=== PATIENT | male | born 1955 | race Caucasian/White ===

== ENCOUNTER → 2017-02-01 | Outpatient (CLI) | payer BC ==
--- NOTE | 2017-02-02 18:19 | VAS ---
Indication: Claudication . Exam: Arterial Doppler and segmental pressures of both lower extremities with ABIs obtained of both lower extremities . Findings: The ABIs along the right lower thigh was 1.0 and the calf is 1.0. The right dorsalis pedis LILIYA is 1. 0 and the posterior tibial LILIYA is 1.1. The left lower extremity LILIYA is 1.0 along the lower thigh and 1.0 in the calf . There is a 1.0 LILIYA i n the left dorsalis pedis and 1.1 LILIYA in the posterior tibial on the left. No occlusion is seen. Impression: No significant atherosclerotic narrowing detected in the lower extremity vasculature. Reported By:
== END ==
LOC: RAD 14:42
PROVIDERS: ATTEND Nurse Practitioner Family
DX: I25.10 Atherosclerotic heart disease of native coronary artery without angina pectoris (principal); I73.89 Other specified peripheral vascular diseases; Z95.1 Presence of aortocoronary bypass graft
CPT/HCPCS: 93922

== ENCOUNTER → 2018-03-08 | Outpatient (CLI) | payer BC ==
--- NOTE | 2018-03-08 11:54 | RAD ---
Examination: Left foot, three views History: Chronic heel pain Findings: No evidence for fracture or dislocation or osteolytic disease. Posterior and plantar calcan eal enthesophytes are present, in addition to calcification in the distal Achilles tendon above the c alcaneus. There is no evidence for bone erosion or significant soft tissue deformity. Impression: Calcaneal spurs. Calcification described above the posterior calcaneus may be related to non-insertional Achilles tendinitis. Correlate clinically. Reported By:
--- NOTE | 2018-03-08 11:54 | RAD ---
Indication: Pain Exam: Bilateral hip series Findings: There is mild joint space narrowing symmetrically in both hips. No fracture or dislocation is seen. The pelvis is intact. The soft tissues are normal. Impression: Mild osteoarthritic changes in both hips with no acute abnormality seen. Reported By:
== END | disposition home or self-care (01) | DRG 556 ==
LOC: RAD 11:19
PROVIDERS: ATTEND Internal Medicine
DX: M79.672 Pain in left foot (principal); M25.559 Pain in unspecified hip; M16.0 Bilateral primary osteoarthritis of hip; M77.32 Calcaneal spur, left foot; M76.62 Achilles tendinitis, left leg
CPT/HCPCS: 73521; 73630